=== PATIENT | male | born 1985 | race Caucasian/White ===

== ENCOUNTER → 2017-10-30 | Emergency (ER) | payer OTHER ==
[~2017-10-30] VITALS: Ht 193 cm; Wt 95.3 kg
[~2017-10-30] MED LIST: AMOX-CLAV 875-1 EACH PO; INTESTINEX680 M1 PO
== END | disposition home or self-care (01) ==
LOC: ER 01:51
DX: S62.314A Displaced fracture of base of fourth metacarpal bone, right hand, initial encounter for closed fracture (principal); S62.396A Other fracture of fifth metacarpal bone, right hand, initial encounter for closed fracture; S61.421A Laceration with foreign body of right hand, initial encounter; W22.8XXA Striking against or struck by other objects, initial encounter; Y93.89 Activity, other specified; Y92.098 Other place in other non-institutional residence as the place of occurrence of the external cause; Y99.8 Other external cause status

== ENCOUNTER → 2017-10-31 | Outpatient (CLI) | payer OTHER | END | disposition home or self-care (01) | LOC: RAD 501 14:23 | DX: S60.221A Contusion of right hand, initial encounter (principal) ==

== ENCOUNTER → 2017-11-05 | Outpatient (CLI) | payer OTHER | END | disposition home or self-care (01) | LOC: RAD 501 13:26 | DX: S60.221A Contusion of right hand, initial encounter (principal) ==

== ENCOUNTER 2017-12-20 17:05 | Outpatient (CLI) | payer OTHER | END 2017-12-20 17:13 | disposition home or self-care (01) | LOC: RAD 17:05 | DX: S62.336D Displaced fracture of neck of fifth metacarpal bone, right hand, subsequent encounter for fracture with routine healing (principal); S62.314D Displaced fracture of base of fourth metacarpal bone, right hand, subsequent encounter for fracture with routine healing; S62.342D Nondisplaced fracture of base of third metacarpal bone, right hand, subsequent encounter for fracture with routine healing ==

== ENCOUNTER → 2017-12-24 10:09 | Outpatient (CLI) | payer BC | END | disposition home or self-care (01) | LOC: LAB 10:09 | DX: E55.9 Vitamin D deficiency, unspecified (principal); M85.9 Disorder of bone density and structure, unspecified ==

== ENCOUNTER → 2017-12-24 | Outpatient (CLI) | payer BC | END | disposition home or self-care (01) | LOC: TOM 11:27 | DX: S62.314D Displaced fracture of base of fourth metacarpal bone, right hand, subsequent encounter for fracture with routine healing (principal) ==

== ENCOUNTER 2018-01-29 12:49 | Outpatient (CLI) | payer BC | END 2018-01-29 12:54 | disposition home or self-care (01) | LOC: EKG 12:49 → EDBD 12:49 → EKG 12:54 | DX: I49.8 Other specified cardiac arrhythmias (principal) ==

== ENCOUNTER 2018-01-29 14:11 | Outpatient (CLI) | payer OTHER | END 2018-01-29 14:14 | disposition home or self-care (01) | LOC: RAD 14:11 → EDBD 14:11 → RAD 14:14 | DX: Z76.89 Persons encountering health services in other specified circumstances (principal) ==

== ENCOUNTER 2018-01-30 06:35 | Outpatient (CLI) | payer BC | END 2018-01-30 06:45 | disposition home or self-care (01) | LOC: EDBD 06:35 → LAB 06:35 | DX: D64.89 Other specified anemias (principal); E88.89 Other specified metabolic disorders; E55.9 Vitamin D deficiency, unspecified; A49.02 Methicillin resistant Staphylococcus aureus infection, unspecified site; E83.42 Hypomagnesemia; N39.0 Urinary tract infection, site not specified; E11.9 Type 2 diabetes mellitus without complications; D68.8 Other specified coagulation defects ==

== ENCOUNTER → 2018-02-05 | Day surgery (SDC) | payer BC | END | disposition home or self-care (01) | LOC: EDBD → CIR.AMB 10:00 | DX: S62.141A Displaced fracture of body of hamate [unciform] bone, right wrist, initial encounter for closed fracture (principal); S62.394A Other fracture of fourth metacarpal bone, right hand, initial encounter for closed fracture; S62.396A Other fracture of fifth metacarpal bone, right hand, initial encounter for closed fracture ==

== ENCOUNTER 2018-03-07 08:17 | Outpatient (CLI) | payer OTHER | END 2018-03-07 08:25 | disposition home or self-care (01) | LOC: RAD 501 08:17 | DX: M79.641 Pain in right hand (principal) ==

== ENCOUNTER 2018-04-17 15:50 | Outpatient (CLI) | payer BC | END 2018-04-17 16:05 | disposition home or self-care (01) | LOC: RAD 501 15:50 | DX: M79.641 Pain in right hand (principal) ==